=== PATIENT | female | born 1960 | race Two or more races ===

== ENCOUNTER 2018-10-12 08:48 | Day surgery (SDC) | payer OTHER ==
[~2018-10-12] VITALS: Ht 149.9 cm; Wt 74.8 kg
[2018-10-12] VITALS (8 sets, daily range): BP systolic 116–133; BP diastolic 58–79
[~2018-10-12 08:48] MED LIST: LR 1000ml 1,000 ML IV SCH
[2018-10-12] MEDS ORDERED: fentaNYL 100 mcg/2 mL IV ONE (08:49)
[2018-10-12] MEDS ORDERED: Midazolam 2mg/2ml Inj ONE (08:49)
[2018-10-12] MEDS ORDERED: NKM (09:23)
--- NOTE | 2018-10-12 09:35 | Short Stay Surgery H&P ---
History of Present Illness History of Present Illness Chief Complaint abdominal pains KATE Tuttle is a 58 year old female who was admitted on for abdominal pains Patient History Allergies: Coded Allergies: No Known Allergies (Unverified , 10/11/18) PAST MEDICAL HISTORY: (1) History of cholecystectomy (2) History of bilateral tubal ligation (3) History of carpal tunnel release (4) History of shoulder surgery Medication History Scheduled No Known Medications* (NKM - No Known Medications*), 0 ., (Reported) Review of Systems Cardiovascular: Reports: no symptoms Respiratory: Reports: no symptoms Skeletal: Reports: trauma Gastrointestinal: Reports: gastro esophageal reflux disease Genitourinary: Reports: no symptoms Endocrine: Reports: no symptoms Hematologic: Reports: no symptoms Physical Exam Vital Signs Last Vital Signs Date Time Temp Pulse Resp B/P (MAP) Pulse Ox O2 Delivery O2 Flow Rate FiO2 10/12/18 09:24 Room Air 10/12/18 09:09 97.9 72 18 133/78 98 Skin: normal HENT: normal Heart: normal Lungs: normal Abdomen: abnormal Extremities: normal Genitourinary: normal Plan Plan of Care Total colonoscopy Preop Interventions None Summary of Findings See the reports Attestation Are the patient's medical conditions optimized for surgery? Attestation Response: yes Radha Chin MD Oct 12, 2018 09:35
--- NOTE | 2018-10-12 09:36 | Pre-Procedure Note/Attestation ---
Pre-Procedure Note/Attestation Complete Prior to Procedure Planned Procedure: left Procedure Narrative: Examination of the colon via endoscopy Indications for Procedure Pre-Operative Diagnosis: R/O colitis/tumors/hemorrhoids Attestation I attest that I discussed the nature of the procedure; its benefits; risks and complications; and alternatives (and the risks and benefits of such alternatives ), prior to the procedure, with the patient (or the patient's legal tax representative). I attest that, if there was a reasonable possibility of needing a blood transfusion, the patient (or the patient's legal tax representative) was given the [facility] standardized written summary, pursuant to the [place] [place] Blood Safety Act ([place] Health and Safety Code # 1645, as amended). I attest that I re-evaluated the patient just prior to the surgery and that there has been no change in the patient's H&P, except as documented below: Radha Chin MD Oct 12, 2018 09:36
[2018-10-12] MEDS ORDERED: Propofol 200mg/20ml IV ONE (10:00)
[2018-10-12] MEDS ORDERED: LR 1000ml ONE (10:00)
[2018-10-12] MEDS ORDERED: LR 1000ml 1,000 ML IVLG SCH (10:05)
--- NOTE | 2018-10-12 10:05 | Anethesia Preoperative Eval ---
Anesthesia Pre-op PMH/ROS General Date of Evaluation: Oct 12, 2018 Time of Evaluation: 09:40 Anesthesiologist: Julieta ASA Score: ASA 2 Mallampati Score Class I : Soft palate, uvula, fauces, pillars visible Class II: Soft palate, uvula, fauces visible Class III: Soft palate, base of uvula visible Class IV: Only hard plate visible Mallampati Classification: Class II Surgeon: You Diagnosis: Abdominal pain Surgical Procedure: Colonoscopy Anesthesia History: none, PONV Family History: no anesthesia problems Allergies: Coded Allergies: No Known Allergies (Unverified , 10/11/18) Medications: see eMAR Patient NPO?: Yes Past Medical History Cardiovascular: Denies: HTN, CAD, [place], valve dz, arrhythmia, other Pulmonary: Denies: asthma, COPD, MATT, other Gastrointestinal/Genitourinary: Reports: GERD Neurologic/Psychiatric: Denies: dementia, CVA, depression/anxiety, TIA, other Endocrine: Denies: DM, hypothyroidism, steroids, other HEENT: Denies: cataract (L), cataract (R), glaucoma, [place] (L), [place] (R), other Hematology/Immune: Denies: anemia, DVT, bleeding disorder, other Musculoskeletal/Integumentary: Denies: OA, RA, DJD, DDD, edema, other Other: obesity PMH Narrative: as above PSxH Narrative: R arm ORIF Anesthesia Pre-op Phys. Exam Physician Exam Last Vital Signs Date Time Temp Pulse Resp B/P (MAP) Pulse Ox O2 Delivery O2 Flow Rate FiO2 10/12/18 09:24 Room Air 10/12/18 09:09 97.9 72 18 133/78 98 Constitutional: NAD Neurologic: CN 2-12 intact Cardiovascular: RRR, no M/R/G Respiratory: CTA Gastrointestinal: other - obesity Airway Exam Mallampati Score: Class II MO: limited Neck: short ROM: limited Teeth: missing Dentures: no upper, no lower Anesthesia Pre-op A/P Risk Assessment & Plan Assessment: ASA 2 Plan: Mike White MD Oct 12, 2018 10:05
--- NOTE | 2018-10-12 10:05 | Endoscopy Procedure Note ---
Endoscopy Procedure Note General Indication for Procedure: Abdominal pains/diarrhea Procedures Performed: colonoscopy - Minimal internal hemorrhoids;otherwise completely normal total colonoscopy upto the base cecum. Specimen: none Pt Tolerated Procedure Well: Yes Estimated Blood Loss: none Anesthesia Anesthesiologist: Dr. Rendon Anesthesia: moderate sedation Inserted Devices Implant(s) used?: No Quality Quality of Bowel Preparation: Excellent Did scope reach the cecum?: Yes Was there any complications?: No GI Core Measures 50 yrs or older w/o bx or poly: Yes 10yrs. F/U recommended: Yes If not recommended, why?: 18 years or older w/prev. colo: No <3yrs. since last colonoscopy: No Med reason:<3 yrs.: System Reason:<3 yrs.: Last colonoscopy >= to 3yrs: Yes Radha Chin MD Oct 12, 2018 10:05
--- NOTE | 2018-10-12 10:06 | Discharge Instructions ---
Discharge Instructions Discharge Instructions Follow up with: No need to follow in the doctor's office. For Congestive Heart Failure Reminder Report to your physician any weight gain of 5 pounds or more in one week. Radha Chin MD Oct 12, 2018 10:06
[2018-10-12] MEDS ORDERED: fentaNYL 100 mcg/2 mL IV PRN (10:15)
--- NOTE | 2018-10-12 10:15 | Immediate Post-Op Evaluation ---
Immediate Post-Op Evalulation Immediate Post-Op Evalulation Procedure: Colonoscopy Date of Evaluation: Oct 12, 2018 Time of Evaluation: 10:14 IV Fluids: 400 Blood Products: none Estimated Blood Loss: none Urinary Output: none Blood Pressure Systolic: 130 Blood Pressure Diastolic: 78 Pulse Rate: 69 Respiratory Rate: 20 O2 Sat by Pulse Oximetry: 99 Temperature (Fahrenheit): 97.6 Pain Score (1-10): 1 Nausea: No Vomiting: No Complications none Patient Status: reacts, patent, none Hydration Status: adequate Mike Rendon MD Oct 12, 2018 10:15
--- NOTE | 2018-10-12 11:30 | Pre-op HX & Phy Repo 2 SIG ---
DATE OF ADMISSION: 10/12/2018 HISTORY OF PRESENT ILLNESS: The patient is a 58-year-old female who is being seen prior to undergoing the procedure of total colonoscopy for which she has been scheduled to receive for examination of total colon, which has caused the GI symptoms subsequent to her work injury. The patient basically is complaining of having generalized abdominal pain, which started after being injured at job site and receiving multiple medications including nonsteroidal antiinflammatory agents. She reports to me that she does have pains mostly all over her abdomen, though she does have symptoms of gastroesophageal reflux consistent with heartburn, which also bothers her over the upper part of the abdomen, but she has had this condition before being injured at job site. She reports that she takes PPIs and acid blockers for this problem and she occasionally does have difficulty swallowing. She denies having any rectal bleeding or vomiting blood. She reports to me that she cannot tolerate milk, consistent with lactose intolerance. The patient reports that she is currently taking her medications such as ibuprofen 500 mg, she is taking twice a day, which she has to take because she was injured at job site. 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 She also reports that she has diarrhea as well. The patient had injured her left wrist and left shoulder as well. This was because of the injury at job site. PAST MEDICAL HISTORY: Basically nonsignificant. She denies having hypertension, any cardiovascular disease. No history of myocardial infarction, pneumonias, serious infections, urinary problem, etc. PAST SURGICAL HISTORY: Seems to be numerous including gallbladder removal and surgery for the right arm fracture and left wrist operation, which was done. Also she has received carpal tunnel syndrome surgery, which was not related to work accident. She also reports to me that she had history of right shoulder arthroscopic examination as well. ALLERGIES: None significant. PRESENT MEDICATIONS: Basically, the patient is taking ibuprofen 500 mg twice a day for her pain that she has over her joints. HABITS: The patient denies drinking alcohol or smoking cigarettes. REVIEW OF SYSTEMS: Basically history of present illness. PHYSICAL EXAMINATION: GENERAL: Reveals alert, oriented, very pleasant female. Does not seem to be in any acute distress. She looks well developed and nourished and answers the questions quite properly. VITAL SIGNS: Blood pressure 133/78, pulse rate 72, respiratory rate 16, oxygen saturation 98%, temperature 97.9. HEENT: Normocephalic. Pupils equal in size and reactive to light and accommodation. No visible jaundice. NECK: Supple. No JVD, thyromegaly, or adenopathy. CHEST: Clear to auscultation and percussion. No rales or rhonchi. HEART: S1, S2 normal. Regular rhythm. No gallops or murmur. ABDOMEN: Soft, but there is evidence of obesity. There are areas of tenderness over the upper and lower part of the abdomen without any percussion tenderness or rebound. There is no palpable mass. EXTREMITIES: Within normal limits. SKIN AND LYMPHATICS: Nonsignificant. INITIAL PREOPERATIVE IMPRESSION: 1. Abdominal pain of uncertain etiology, rule out irritable bowel syndrome/IBS aggravated by side effects of medications such as ibuprofen and significant anxiety and stress related to work accident. 2. History of gastroesophageal acid reflux (nonindustrial). 3. History of depression and anxiety. 4. Obesity. RECOMMENDATIONS: The applicant seems to be stable at this time to undergo the procedure of colonoscopic examination for which she has been scheduled to receive. She understands the risks and benefits and will sign the consent. Said Valentin Chin DR: THOM JOB#: [id number] CC:
--- NOTE | 2018-10-12 11:30 | Operative Note - Dictated ---
DATE OF OPERATION: 10/12/2018 SURGEON: Radha Chin M.D. PROCEDURE: Total colonoscopy. PREOPERATIVE DIAGNOSES: Abdominal pain, history of chronic intermittent diarrhea, rule out colitis. POSTOPERATIVE DIAGNOSIS: Minimal internal hemorrhoid, otherwise completely normal total colonoscopy up to the base of the cecum as examined. MEDICATION USED: Per Dr. Rendon, anesthesiologist. INSTRUMENT: GIF Olympus video colonoscope. DESCRIPTION OF PROCEDURE: The patient after arriving in the endoscopy unit, was told about risks and benefits of the procedure, which she accepted and signed informed consent. At this time, she was put on the left lateral decubitus position. After adequate IV sedation, the scope was gently passed through the anal area, which revealed evidence of minimal internal hemorrhoids with external hemorrhoidal tags of no great significance and certainly these hemorrhoidal lesions were minimal and not friable or bleed. The rest of the rectum also looked completely normal. The retroflexion maneuver was applied in the rectum also revealed the same findings. At this point, the scope was gradually passed towards rather highly redundant left colon, which revealed no abnormalities. The colon cleanup was adequate. Finally, the scope reached the splenic flexure, transverse colon, hepatic flexure, and guided into the right colon all the way to the base of the cecum as the appendiceal opening was also visualized. All these areas remained to be completely normal without any evidence of colitis, strictures, tumors, polyps, etc. Finally within 7 minutes the scope was gradually pulled out and finding no other abnormalities procedure was terminated. The patient tolerated the procedure well and left the endoscopy room in a good condition. Radha Chin M.D. DR: JANE JOB#: [id number] CC:
--- NOTE | 2018-10-12 13:07 | 48 Hour Post Anesthesia Eval ---
Post Anesthesia Evaluation Procedure: Colonoscopy Date of Evaluation: Oct 12, 2018 Time of Evaluation: 13:06 Blood Pressure Systolic: 124 0: 58 Pulse Rate: 72 Respiratory Rate: 20 Temperature (Fahrenheit): 97.6 O2 Sat by Pulse Oximetry: 98 Airway: patent Nausea: No Vomiting: No Pain Intensity: 1 Hydration Status: adequate Cardiopulmonary Status: stable Mental Status/LOC: patient returned to baseline Follow-up Care/Observations: n/a Post-Anesthesia Complications: none Follow-up care needed: ready to discharge Mike Rendon MD Oct 12, 2018 13:07
== END 2018-10-12 11:30 | disposition home or self-care (01) ==
LOC: GAS 08:48
DX: R10.9 Unspecified abdominal pain (principal); K64.8 Other hemorrhoids; E66.9 Obesity, unspecified; K21.9 Gastro-esophageal reflux disease without esophagitis; F32.9 Major depressive disorder, single episode, unspecified; F41.9 Anxiety disorder, unspecified; Z79.1 Long term (current) use of non-steroidal anti-inflammatories (NSAID); Z90.49 Acquired absence of other specified parts of digestive tract
CPT/HCPCS: 45378; J2250; J2704; J3010; 94003; 94150